=== PATIENT | male | born 1985 ===

== ENCOUNTER 2022-04-24 13:42 | Emergency (ER) | payer BC ==
[~2022-04-24] VITALS: Ht 177.8 cm; Wt 95.2 kg
[2022-04-24] MEDS ORDERED: NS IV 1000 ML 1,000 ML IV STA (13:53)
[2022-04-24 13:59] LABS: BILIRUBIN,URINE NEGATIVE (NEGATIVE); CLARITY,URINE CLEAR; COLOR,URINE YELLOW; GLUCOSE, URINE (UA) NEGATIVE (NEGATIVE); KETONES,URINE 2+ (NEGATIVE); LEUKOCYTE ESTERASE ,URINE NEGATIVE (NEGATIVE); NITRITE,URINE NEGATIVE (NEGATIVE); PH,URINE 8.5 (5-9); PROTEIN,URINE TRACE (NEGATIVE)
[2022-04-24] MEDS ORDERED: KETOROLAC 30 MG/ML VIAL IVP ONE (14:00)
[2022-04-24] MEDS ORDERED: ONDANSETRON 4 MG/2 ML (SDV) Z0FRAN IVP ONE (14:00)
--- NOTE | 2022-04-24 14:05 | ED Abdominal Pain ---
General Chief Complaint: Abdominal/GI Problems Stated Complaint: LEFT SIDE ABD PAIN Source of Information: Patient Exam Limitations: No Limitations History of Present Illness Date Seen by Provider: Apr 24, 2022 Time Seen by Provider: 14:00 Initial Comments Patient is a 36-year-old male with a history of kidney stones who presents ED w ith left flank pain. acute onset around 7:00 this morning. Sharp pain that radiates to the left lateral abdomen. He has had history of similar pain that resolves after at least an hour. Patient was diagnosed with a kidney stone 4 mm last January. That pain eventually improved. He states today's pain has not improved at all. Took some anti-inflammatories without much improvement. He reports normal urination without dark urine, fever, diarrhea. Did vomit once this morning. Has not been able to eat or drink. Denies history of previous abdominal surgery. Denies chest pain, cough, shortness of breath, headache, dizziness. Allergies and Home Medications Allergies Coded Allergies: No Known Drug Allergies (Unverified , 04/24/22) Patient Home Medication List Home Medication List Reviewed: Yes Hydrocodone/Acetaminophen (Hydrocodone-Acetamin 5-325 mg) 5 Mg-325 Mg Tablet, 1 TAB PO Q4H PRN for PAIN-MODERATE (5-7) Prescribed by: JS HORTON on 04/24/22 1509 Ondansetron (Ondansetron Odt) 4 Mg Tab.rapdis, 4 MG SL Q4H PRN for NAUSEA/VOMITING Prescribed by: JS HORTON on 04/24/22 1509 Tamsulosin HCl (Flomax) 0.4 Mg Cap, 0.4 MG PO DAILY Prescribed by: JS HORTON on 04/24/22 1509 Review of Systems Review of Systems Constitutional: No chills, No diaphoresis, No malaise, No weakness EENTM: No Double Vision, No Eye Pain Respiratory: Denies Cough, Denies Orthopnea, Denies Shortness of Air Cardiovascular: Denies Chest Pain Gastrointestinal: Abdominal Pain; Denies Diarrhea, Denies Nausea, Denies Vomiting Genitourinary: Denies Burning, Denies Discharge, Denies Drainage, Denies Frequency Musculoskeletal: back pain; No joint pain Skin: No change in color, No change in hair/nails All Other Systems Reviewed Negative Unless Noted: Yes Physical Exam Vital Signs Capillary Refill : Height/Weight/BMI Height: '" Weight: lbs. oz. 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, no motor/sensory deficits, alert, normal mood/affect, oriented x 3 Skin: normal color, warm/dry Progress/Results/Core Measures Results/Orders Lab Results Laboratory Tests Test 04/24/22 13:50 04/24/22 14:05 Range/Units Urine Color YELLOW Urine Clarity CLEAR Urine pH 8.5 5-9 Urine Specific [place] 1.020 1.016-1.022 Urine Protein TRACE H NEGATIVE Urine Glucose (UA) NEGATIVE NEGATIVE Urine Ketones 2+ H NEGATIVE Urine Nitrite NEGATIVE NEGATIVE Urine Bilirubin NEGATIVE NEGATIVE Urine Urobilinogen 1.0 < = 1.0 MG/DL Urine Leukocyte Esterase NEGATIVE NEGATIVE Urine RBC (Auto) 2+ H NEGATIVE Urine RBC 10-25 H /HPF Urine WBC RARE /HPF Urine Squamous Epithelial Cells RARE /HPF Urine Crystals PRESENT H /LPF Urine Amorphous Sediment FEW ASHLEY PHOSPHATE H /LPF Urine Bacteria TRACE /HPF Urine Casts NONE /LPF Urine Mucus NEGATIVE /LPF Urine Culture Indicated NO White Blood Count 9.4 4.3-11.0 10^3/uL Red Blood Count 5.00 4.30-5.52 10^6/uL Hemoglobin 15.1 13.3-17.7 g/dL Hematocrit 44 40-54 % Mean Corpuscular Volume 89 80-99 fL Mean Corpuscular Hemoglobin 30 25-34 pg Mean Corpuscular Hemoglobin Concent 34 32-36 g/dL Red Cell Distribution Width 12.5 10.0-14.5 % Platelet Count 279 130-400 10^3/uL Mean Platelet Volume 10.0 9.0-12.2 fL Immature Granulocyte % (Auto) 0 % Neutrophils (%) (Auto) 78 H 42-75 % Lymphocytes (%) (Auto) 13 12-44 % Monocytes (%) (Auto) 8 0-12 % Eosinophils (%) (Auto) 0 0-10 % Basophils (%) (Auto) 0 0-10 % Neutrophils # (Auto) 7.3 1.8-7.8 10^3/uL Lymphocytes # (Auto) 1.3 1.0-4.0 10^3/uL Monocytes # (Auto) 0.8 0.0-1.0 10^3/uL Eosinophils # (Auto) 0.0 0.0-0.3 10^3/uL Basophils # (Auto) 0.0 0.0-0.1 10^3/uL Immature Granulocyte # (Auto) 0.0 0.0-0.1 10^3/uL Sodium Level 139 135-145 MMOL/L Potassium Level 4.0 3.6-5.0 MMOL/L Chloride Level 103 98-107 MMOL/L Carbon Dioxide Level 23 21-32 MMOL/L Anion Gap 13 5-14 MMOL/L Blood Urea Nitrogen 12 7-18 MG/DL Creatinine 0.82 0.60-1.30 MG/DL Estimat Glomerular Filtration Rate 116 BUN/Creatinine Ratio 15 Glucose Level 97 70-105 MG/DL Calcium Level 9.6 8.5-10.1 MG/DL Corrected Calcium 9.2 8.5-10.1 MG/DL Total Bilirubin 0.7 0.1-1.0 MG/DL Aspartate Amino Transf (AST/SGOT) 21 5-34 U/L Alanine Aminotransferase (ALT/SGPT) 15 0-55 U/L Alkaline Phosphatase 67 40-136 U/L Total Protein 8.7 H 6.4-8.2 GM/DL Albumin 4.5 3.2-4.5 GM/DL Lipase 47 8-78 U/L My Orders Orders - ERINN RODRIGUEZ Urinalysis (04/24/22 13:44) Cbc With Automated Diff (04/24/22 13:53) Comprehensive Metabolic Panel (04/24/22 13:53) Lipase (04/24/22 13:53) Ns Iv 1000 Ml (Sodium Chloride 0.9%) (04/24/22 13:53) Ketorolac Injection (Toradol Injection) (04/24/22 14:00) Ondansetron Injection (Zofran Injectio (04/24/22 14:00) Ct Abd/Pelvis Wo(Kidney Stone) (04/24/22 13:58) Medications Given in ED Current Medications Medications Dose Ordered Sig/Marcelina Route Start Time Stop Time Status Last Admin Dose Admin Ketorolac Tromethamine 30 mg ONCE ONCE IVP 04/24/22 14:00 04/24/22 14:01 DC 04/24/22 14:07 30 MG Ondansetron HCl 4 mg ONCE ONCE IVP 04/24/22 14:00 04/24/22 14:01 DC 04/24/22 14:07 4 MG Departure Communication (PCP) Patient without any previous ER visits. History of kidney stones. Patient lives in [place] currently in the area. Last kidney stone was in January of last year. Pain 10 out of 10 left lateral flank this morning. Patient Was given Toradol here with resolution of pain. Urinalysis positive for hematuria without evidence of infection. CBCs, CMP and lipase was ordered. Patient was started on a liter of fluid. Normal white blood count, kidney function, liver function noted on lab work. CT abdomen and pelvis without contrast shows a 6.6 mm obstructing left ureter stone with mild to moderate hydronephrosis with ureter stranding and nephric stranding. Patient pain was completely resolved. He was given a liter of fluid. Discussed with patient that this will calculus will likely not pass and with the straining urology consult is recommended. Patient states he is returning back to [place] and will follow-up with a urologist. He states his father has a urologist that he sees with a history of kidney stones and who he will follow-up with. Discussed with patient today's findings and needs to be seen within the next week. If any change in urination such as decreased urine output, passing of blood clot, increasing pain he needs return back to ED or follow-up with the nearest ER in [place]. We will provide pain medication, Flomax and Zofran for nausea. Impression Primary Impression: Ureterolithiasis Disposition: HOME, SELF-CARE Condition: Stable Departure-Patient Inst. Decision time for Depature: 15:07 Referrals: NO,LOCAL PHYSICIAN (PCP/Family) Primary Care Physician Patient Instructions: Kidney Stones in Adults Scripts Ondansetron (Ondansetron Odt) 4 Mg Tab.rapdis 4 MG SL Q4H PRN for NAUSEA/VOMITING, #6 TAB Prov: ERINN RODRIGUEZ 04/24/22 Hydrocodone/Acetaminophen (Hydrocodone-Acetamin 5-325 mg) 5 Mg-325 Mg Tablet 1 TAB PO Q4H PRN for PAIN-MODERATE (5-7), #8 TAB Prov: ERINN RODRIGUEZ 04/24/22 Tamsulosin HCl (Flomax) 0.4 Mg Cap 0.4 MG PO DAILY, #14 CAP Prov: ERINN RODRIGUEZ 04/24/22 ERINN RODRIGUEZ Apr 24, 2022 14:05
[2022-04-24 14:10] LABS: BACTERIA,URINE TRACE /HPF; SQUAMOUS EPITHELIAL CELL,UR RARE /HPF; WBC,URINE RARE /HPF
[2022-04-24 14:11] LABS: AMORPHOUS SEDIMENT,UR FEW AMOR PHOSPHATE /LPF
[2022-04-24 14:14] LABS: BASOPHILS % (AUTO) 0 % (0-10); EOSINOPHILS % (AUTO) 0 % (0-10); HEMATOCRIT 44 % (40-54); HEMOGLOBIN 15.1 g/dL (13.3-17.7); LYMPHOCYTES # (AUTO) 1.3 10^3/uL (1.0-4.0); LYMPHOCYTES % (AUTO) 13 % (12-44); MEAN CORPUSCULAR HEMOGLOBIN 30 pg (25-34); MEAN CORPUSCULAR HGB CONC 34 g/dL (32-36); MEAN CORPUSCULAR VOLUME 89 fL (80-99); MONOCYTES # (AUTO) 0.8 10^3/uL (0.0-1.0); MONOCYTES % (AUTO) 8 % (0-12); NEUTROPHILS # (AUTO) 7.3 10^3/uL (1.8-7.8); NEUTROPHILS % (AUTO) 78 % (42-75); PLATELET COUNT 279 10^3/uL (130-400); WHITE BLOOD COUNT 9.4 10^3/uL (4.3-11.0)
[2022-04-24 14:26] LABS: ALBUMIN 4.5 GM/DL (3.2-4.5)
[2022-04-24 14:28] LABS: CALCIUM 9.6 MG/DL (8.5-10.1)
[2022-04-24 14:29] LABS: TOTAL PROTEIN 8.7 GM/DL (6.4-8.2)
[2022-04-24 14:31] LABS: BILIRUBIN,TOTAL 0.7 MG/DL (0.1-1.0)
[2022-04-24 14:32] LABS: CREATININE SERUM 0.82 MG/DL (0.60-1.30)
--- NOTE | 2022-04-24 14:38 | Diagnostic Imaging Report ---
PROCEDURE: CT urinary tract, rule out kidney stone. TECHNIQUE: Multiple contiguous axial images were obtained through the abdomen and pelvis without the use of intravenous contrast. Auto Exposure Controls were utilized during the CT exam to meet ALARA standards for radiation dose reduction. INDICATION: Left flank pain. FINDINGS: At the L4-L5 disc space level, there is a large calculus in the left ureter in axial plane measuring 3.7 mm, but a 6.6 mm cephalocaudal length. This results in [id number] upstream left hydroureteronephrosis with left perinephric and periureteric stranding and edema. No discrete fluid collection. The left ureter beyond was decompressed. No additional stone. Unopacified urinary bladder unremarkable. Right kidney negative. No additional radiodense urinary tract calculi. There is a hiatal hernia, small. Liver, gallbladder, bile ducts, spleen, adrenals and pancreas nonacute. No bowel obstruction. There is no appendicitis or diverticulitis. IMPRESSION: 1. 6.6 mm maximal dimension mid left ureteral stone results in [id number] upstream hydroureteronephrosis with perinephric and periureteric stranding. 2. No additional abnormality. Dictated by: Dictated on workstation # [id number]
[2022-04-24] MEDS ORDERED: TMSL.4C PO (15:09)
[2022-04-24] MEDS ORDERED: ACHD5005 PO (15:09)
[2022-04-24] MEDS ORDERED: ONDA4TAB11 SL (15:09)
[2022-04-24 15:15] VITALS: BP 122/76
== END 2022-04-24 15:17 | disposition home or self-care (01) ==
LOC: ER 13:46
DX: N13.2 Hydronephrosis with renal and ureteral calculous obstruction (principal); Z28.310 Unvaccinated for COVID-19
CPT/HCPCS: 36415; 74176; 80053; 81000; 83690; 85025